=== PATIENT | male | born 1960 | race Hispanic/Latino ===

== ENCOUNTER 2020-09-18 10:15 | Outpatient (CLI) | payer BC | END 2020-09-18 10:16 | disposition home or self-care (01) | LOC: CSHCT 10:15 | PROVIDERS: ATTEND Physician Assistant | DX: S02.91XA Unspecified fracture of skull, initial encounter for closed fracture (principal); H74.8X1 Other specified disorders of right middle ear and mastoid | CPT/HCPCS: 70450 ==